=== PATIENT | male | born 1990 | race American Indian/Alaskan Native ===

== ENCOUNTER 2017-02-07 14:09 | Emergency (ER) | payer SELFPAY ==
[2017-02-07 14:40] VITALS: BP 143/86
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
[2017-02-07] MEDS ORDERED: TORADOL IM ONE (16:04)
== END 2017-02-07 16:10 | disposition home or self-care (01) ==
LOC: ED 14:09
DX: R51 Headache (principal); M54.2 Cervicalgia
CPT/HCPCS: 96372; 99282; J1885